=== PATIENT | male | born 1985 | race Caucasian/White ===

== ENCOUNTER 2018-10-01 22:20 | Emergency (ER) | payer MEDICAID ==
[~2018-10-01] VITALS: Ht 185.4 cm; Wt 165.6 kg
[2018-10-01 22:37] VITALS: BP_SYST 136
--- NOTE | 2018-10-01 23:03 | NUR ---
PAGED PAGING DR. DAVILA FOR ORDERS, SPOKE WITH NEIDA
[2018-10-02 00:18] VITALS: BP_SYST 107
[2018-10-02 01:09] VITALS: BP_SYST 133
--- NOTE | 2018-10-02 01:09 | NUR ---
Patient to ER bed 02 to gown for evaluation. Side rails up. Report given to AVA Covarrubias
--- NOTE | 2018-10-02 01:10 | NUR ---
PT brought to ED from [place] due to no direct admitting physician. Pt was brought in from [facility] ED.
--- NOTE | 2018-10-02 01:10 | NUR ---
Hesham barclay in EDM - 10/02/18 at 0444 by [email or web address] PT brought to ED from floor due to no direct admitting physician. Pt was brought from [facility].
--- NOTE | 2018-10-02 01:15 | NUR ---
PT came to the ED from the floor for evaluation. Pt was sent to [facility] for direct admission by [place]. Pt states that he has had ABD for 2 years. Pain is locaed in the epigastric region and is 9/10 pain. Denies n/v/d or fever. No other complaints/injuries noted. Will cont. to monitor.
[2018-10-02 01:32] LABS: BASOPHILS # (AUTO) 0.1 K/uL (0.0-0.2); EOSINOPHILS # (AUTO) 0.6 K/uL (0.0-0.4); EOSINOPHILS % (AUTO) 6.7 % (0.0-4.0); HEMATOCRIT 41.5 % (36-54); HEMOGLOBIN 13.8 g/dL (14.0-18.0); LYMPHOCYTES # (AUTO) 2.6 K/uL (1.0-5.5); LYMPHOCYTES % (AUTO) 29.9 % (20.5-51.5); MEAN CORPUSCULAR HEMOGLOBIN 30 pg (27-31); MEAN CORPUSCULAR HGB CONC 33 % (32-36); MEAN CORPUSCULAR VOLUME 91 fL (79.0-98.0); MONOCYTES # (AUTO) 0.7 K/uL (0.0-1.0); MONOCYTES % (AUTO) 7.5 % (1.7-9.3); NEUTROPHILS # (AUTO) 4.8 K/uL (1.8-7.7); NEUTROPHILS % (AUTO) 54.9 % (40.0-70.0); PLATELET COUNT (AUTO) 261 K/uL (130-430); RED BLOOD CELL COUNT(AUTO) 4.57 MIL/uL (4.2-6.2); RED CELL DISTRIBUTION WIDTH 12.9 % (9.0-15.0); WHITE BLOOD COUNT (AUTO) 8.8 K/uL (4.8-10.8)
--- NOTE | 2018-10-02 01:43 | NUR ---
ER Dr. Christy at bedside examining patient.
[2018-10-02 01:44] LABS: CREATININE 0.87 mg/dL (0.55-1.30); POTASSIUM 3.7 mmol/L (3.5-5.1)
[2018-10-02 01:50] LABS: ALBUMIN 3.6 g/dL (3.4-4.8); TOTAL BILIRUBIN 0.4 mg/dL (0.0-1.0)
[2018-10-02] MEDS ORDERED: IPRATROPIUM/ALBUTEROL SULFATE 3 ML AMPUL.NEB (DUONEB) INH ONE (02:00)
--- NOTE | 2018-10-02 02:42 | NUR ---
Pt went to radiology via [employer]. Tolerated well. Will cont. to monitor.
[2018-10-02] MEDS ORDERED: MORPHINE 4 MG/ML INJ. SYRINGE IVP ONE (02:45)
--- NOTE | 2018-10-02 03:00 | NUR ---
PT states, "I am upset no labs or CT was done while at [facility] ED."
[2018-10-02] MEDS ORDERED: MAG HYDROX/AL HYDROX/SIMETH 30 ML, DICYCLOMINE HCL 20 MG, LIDOCAINE VISCOUS 2% 15ML (PO... PO ONE ×3 (03:30)
--- NOTE | 2018-10-02 04:34 | NUR ---
Patient given written and verbal discharge instructions and verbalizes understanding. ER MD Dr. Christy discussed with patient the results and treatment provided. Patient in stable condition. ID arm band removed. IV catheter removed intact and dressing applied, no active bleeding. Rx of protonix given. Patient educated on pain management and to follow up with PMD. Pain Scale 0/10. Opportunity for questions provided and answered. Medication side effect fact sheet provided.
[2018-10-02 04:39] VITALS: BP_SYST 133
== END 2018-10-02 04:39 | disposition home or self-care (01) ==
LOC: UNDOADMIN 22:20 → SED 22:20 → SMU 22:20 → SED 10-02 00:54
DX: K29.70 Gastritis, unspecified, without bleeding (principal); F17.200 Nicotine dependence, unspecified, uncomplicated
CPT/HCPCS: 36415; 74176; 80053; 83690; 83880; 84484; 85025; 94640; 96374; 99284; J2001; J2270; J7620; 93005